=== PATIENT | female | born 1950 | race Caucasian/White ===

== ENCOUNTER → 2017-02-20 | Outpatient (CLI) | payer OTHER ==
--- NOTE | 2017-02-20 11:08 | DIAGNOSTIC IMAGING REPORT ---
(CHEST) THORAX WITHOUT CLINICAL HISTORY: LUNG NODULE COMPARISON STUDY: 02/13/2016 CT DOSE: 467.97 mGycm TECHNIQUE: CT of the thorax was performed from the thoracic inlet to the lung bases. Images are reviewed in the axial, sagittal, and coronal planes. IV contrast was not administered for this examination. A dose lowering technique was utilized adhering to the principles of ALARA. FINDINGS: Thyroid: Imaged portions of the thyroid gland are normal in appearance. Thoracic aorta: The thoracic aorta is normal in course and caliber, noting standard 3 vessel arch anatomy. Heart: There are minor coronary calcifications. Lungs and pleural spaces: No pleural effusions are visualized. There is right lower lobe bronchial wall thickening and mucous plugging. There is a stable solid 8 mm right middle lobe pulmonary nodule. Mediastinum: There are multiple small mediastinal lymph nodes which individually are not pathologically enlarged. Layla: There is no evidence of pathologic adenopathy given the limitations of a noncontrast study Axilla: There is no evidence of pathologic axillary lymphadenopathy Upper abdomen: There is an 8 mm left lobe hepatic cyst similar to the prior study. Skeletal structures: There is a sclerotic lesion within the T3 vertebra. This remains unchanged from the preceding study. IMPRESSION: 1. Stable solid 8 mm right middle lobe pulmonary nodule 2. Right lower lobe bronchial wall thickening and mucous plugging 3. Stable sclerotic lesion within the T3 vertebra, likely representing a bone island Electronically signed by: Devon Snyder M.D. 02/20/2017 11:06 AM Dictated Date/Time: 02/20/2017 10:59 AM
== END | disposition home or self-care (01) ==
LOC: C.CTS 10:43
PROVIDERS: ATTEND Internal Medicine
DX: R91.8 Other nonspecific abnormal finding of lung field (principal)

== ENCOUNTER → 2017-06-05 | Outpatient (CLI) | payer OTHER | END | disposition home or self-care (01) | LOC: C.LABSPEC 14:08 | PROVIDERS: ATTEND Urology | DX: N39.0 Urinary tract infection, site not specified (principal) ==